=== PATIENT | female | born 1975 | race Caucasian/White ===

== ENCOUNTER 2017-03-14 13:09 | Emergency (ER) | payer OTHER ==
[2017-03-14] MEDS ORDERED: NORMAL SALINE 1000 ML 1,000 ML IV ONE (13:38)
--- NOTE | 2017-03-14 13:39 | ER Document Report ---
ED Seizure - General Mode of Arrival: Medic Information source: Patient, Relative <ALISON JAMISON - Last Filed: 03/14/17 13:48> <CARMINA SALAS - Last Filed: 03/14/17 16:28> - General Stated Complaint: POSSIBLE SEIZURE Time Seen by Provider: 03/14/17 13:15 Notes: Patient is a 41-year-old female that presents to the emergency department today after a seizure that occurred prior to arrival. at bedside gives most of the history. According to the , the patient has "not been feeling well" for the last few days. Today, they were in the kitchen cooking when she stated she did not feel well and was going to lie down. went to the bedroom, patient was sitting up, staring at the back of the thermometer with a blank stare and then went into seizure-like activity. describes this as the patient tensing up and shaking, lasting for approximately 1 minute. states he carried her into the living room and laid her down on the floor where she eventually stopped tensing up, however she continued to have a blank stare. states she then was very confused, combative, pushing him away when EMS arrived. Patient states she is mildly nauseated but denies any pain other than her usual arthritic pain. Patient denies a headache. Patient does not have a history of seizures. (ALISON JAMISON) The patient sees Dr. Elmore for primary care, Dr. Orr is her child and adolescent therapist and [place], Dr. Rodriguez is her ordnance technician with [facility], Dr. Kimberly Diehl [place] manages her hyperthyroidism. (CARMINA SALAS) - Related Data Allergies/Adverse Reactions: No Known Allergies Allergy (Unverified 10/17/14 11:02) Past Medical History - General Information source: Patient, Relative - Social History Smoking Status: Never Smoker Cigarette use (# per day): No Frequency of alcohol use: None Drug Abuse: None Lives with: Family Family History: Reviewed & Not Pertinent - Past Medical History Cardiac Medical History: Reports: Other - History of SVT, on metoprolol Pulmonary Medical History: Reports: Hx Pneumonia - 10 yrs ago Neurological Medical History: Reports: Hx Migraine Endocrine Medical History: Reports: Hx Hyperthyroidism Renal/ Medical History: Reports: Hx Ovarian Cysts - left x 2 Musculoskeltal Medical History: Reports Hx Arthritis - RA, Reports Hx Musculoskeletal Deformity, Reports Hx Musculoskeletal Trauma, Reports Other - 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 Psychiatric Medical History: Reports: Hx Anxiety, Hx Depression Past Surgical History: Reports: Hx Adenoidectomy, Hx Section - x 3, Hx Hysterectomy, Hx Oral Surgery - [place] teeth, Hx Orthopedic Surgery - right knee wash, Hx Tonsillectomy - Immunizations Hx Diphtheria, Pertussis, Tetanus Vaccination: Yes <ALISON JAMISON - Last Filed: 03/14/17 13:48> Review of Systems - Review of Systems Constitutional: See HPI, Fever - "low grade" no higher than 100 EENT: No symptoms reported Cardiovascular: No symptoms reported Respiratory: No symptoms reported Gastrointestinal: See HPI, Nausea Genitourinary: No symptoms reported Female Genitourinary: No symptoms reported Musculoskeletal: No symptoms reported Skin: No symptoms reported Hematologic/Lymphatic: No symptoms reported Neurological/Psychological: See HPI, Seizure. denies: Headaches -: Yes All other systems reviewed and negative <ALISON JAMISON - Last Filed: 03/14/17 13:48> Physical Exam <ALISON JAMISON - Last Filed: 03/14/17 13:48> <CARMINA SALAS - Last Filed: 03/14/17 16:28> - Vital signs Vitals: Pulse Resp 125 H 18 03/14/17 13:15 03/14/17 13:15 - Notes Notes: Physical Exam: General: Alert, appears uncomfortable. HEENT: Normocephalic. Atraumatic. PERRL. Extraocular movements intact. Oropharynx clear. No tongue biting. Neck: Supple. Non-tender. Respiratory: No respiratory distress. Clear and equal breath sounds bilaterally. Cardiovascular: Tachycardic, no murmurs, regular rhythm. Abdominal: Normal Inspection. Non-tender. No distension. Normal Bowel Sounds. Back: Non-tender. No deformity or step off. Extremities: Moves all four extremities. Upper extremities: Normal inspection. Normal ROM. Lower extremities: Normal inspection. No edema. Normal ROM. Neurological: Normal cognition. AAOx4. Normal speech. Psychological: Normal affect. Normal Mood. Skin: Warm. Dry. Normal color. (ALISON JAMISON) Course <ALISON JAMISON - Last Filed: 03/14/17 13:48> - Laboratory Result Diagrams: 03/14/17 14:29 03/14/17 14:29 - EKG Interpretation by Me EKG shows normal: Sinus rhythm, [place], Intervals, QRS Complexes. abnormal: ST-T Waves Rate: Tachycardia - 108 P Waves: LAE When compared to previous EKG there are: Changes noted - Nonspecific lateral T- wave changes <CARMINA SALAS - Last Filed: 03/14/17 16:28> - Re-evaluation Re-evalutation: 03/14/17 15:42 Patient is now sitting up feeling much better except that now she is having her typical migraine type headache. I explained to her and her that she needs neurological workup for seizure disorder as her 2 days of sleep deprivation may well have lowered his seizure threshold. The rest of her evaluation including laboratory and history does suggest a viral type illness probably causing her to feel poorly. Her free T4 was 1.14 which is completely normal, her free T3 was 8.23 which is slightly elevated but an unlikely cause to lower her seizure threshold. Her WBC is 11,600 which is slightly elevated, but is not unexpected in the face of a tonic-clonic seizure. Her blood pressure is now 129/86 with a heart rate in the low 90s. (CARMINA SALAS) - Vital Signs Vital signs: Temp Pulse Resp BP Pulse Ox 125 H 14 130/93 H 99 03/14/17 13:15 03/14/17 14:05 03/14/17 14:05 03/14/17 14:05 - Laboratory Laboratory results interpreted by me: 03/14/17 03/14/17 03/14/17 14:29 14:29 14:29 WBC 11.6 H Seg Neutrophils % 84.1 H Lymphocytes % 10.8 L Absolute Neutrophils 9.7 H Glucose 111 H Magnesium 2.5 H Albumin 5.4 H Free T3 pg/mL 8.23 H Urine Protein Urine Blood 03/14/17 14:48 WBC Seg Neutrophils % Lymphocytes % Absolute Neutrophils Glucose Magnesium Albumin Free T3 pg/mL Urine Protein 100 H Urine Blood SMALL H Discharge <ALISON JAMISON - Last Filed: 03/14/17 13:48> <CARMINA SALAS - Last Filed: 03/14/17 16:28> - Discharge Clinical Impression: Seizure, Post-seizure headache Condition: Stable Disposition: HOME, SELF-CARE Additional Instructions: Seizure: You have had a seizure. Seizure disorders (epilepsy) of one sort or another affect about one out of 50 people. The seizure occurs because of abnormal electrical activity in the brain. Seizures may be due to drugs and alcohol, strokes, brain injury, or infection. In the most common form of epilepsy, no cause can be found. You will require further evaluation to determine the cause of your seizure, and to determine whether anti-seizure medication is required. This follow-up testing is important, so please call us if you encounter problems with scheduling of tests or appointments. YOU SHOULD NOT DRIVE until released to do so by your physician. The law requires that seizures be reported to the road driver's license bureau--a seizure while driving could be catastrophic. Call the doctor if seizures recur, or if you develop new symptoms such as fever, severe headache, stiff neck, confusion or increasing sleepiness, weakness or numbness, or visual problems. Viral Syndrome: You most likely have a viral infection. Viruses not only cause "colds," but can cause many different symptoms including generalized aching, fever, headache, cough, diarrhea, nausea, vomiting, and fatigue. The treatment, for the most part, is simply relief of symptoms. This means that antibiotics are usually not given. Rest, fluids, pain medications and, occasionally, medication for the specific symptoms that are most bothersome will be prescribed. Use good handwashing to avoid passing the virus to others. Shared toys should be cleaned with disinfectant. Clean the toilets, sinks, and counter surfaces in bathrooms. Launder clothing in hot water. Contact the physician if you develop any new or unusual symptoms such as severe headache, stiff neck, high fever, chest pain, productive cough, or shortness of breath. You should be rechecked if you don't see marked improvement within seven to 10 days. //////////////////////////////////////////////////////////////////////////////// //////////////////////////////////////////////////////////////////////////////// ////////////////// Drink plenty of fluids. Get some sleep. Avoid caffeine or any energy type drinks. Follow-up with your primary care provider Saturday to discuss referral to neurology service to further evaluate this seizure. Take copies of the lab work with you when you go to see your primary care provider. RETURN TO THE EMERGENCY ROOM IF ANY NEW OR WORSENING SYMPTOMS. Scribe Attestation: 03/14/17 13:58 I personally performed the services described in the documentation, reviewed and edited the documentation which was dictated to the scribe in my presence, and it accurately records my words and actions. (CARMINA SALAS) Scribe Documentation - Scribe Written by Josephine:: Josephine Silvestre, 03/14/2017 1355 acting as scribe for :: Kristin <ALISON JAMISON - Last Filed: 03/14/17 13:48>
--- NOTE | 2017-03-14 14:04 | RADIOLOGY REPORT (SQ) ---
EXAM DESCRIPTION: CT HEAD WITHOUT COMPLETED DATE/TIME: 03/14/2017 1:54 pm REASON FOR STUDY: New-onset seizures, immunosuppressed COMPARISON: None. TECHNIQUE: Axial images acquired through the brain without intravenous contrast. Images reviewed wi th bone, brain and subdural windows. Images stored on PACS. All CT scanners at this facility use dose modulation, iterative reconstruction, and/or weight based d osing when appropriate to reduce radiation dose to as low as reasonably achievable (ALARA). [facility]: Dose Right [facility]: CareDose [facility]: Dose Right [facility]: Teradose 4D [facility]: Smart [employer] RADIATION DOSE: CT Rad equipment meets quality standard of care and radiation dose reduction techniq ues were employed. CTDIvol: 64.6 mGy. DLP: 1163 mGy-cm. mGy. LIMITATIONS: None. FINDINGS: VENTRICLES: Normal size and contour. CEREBRUM: No masses. No hemorrhage. No midline shift. No evidence for acute infarction. Normal gra y/white matter differentiation. No areas of low density in the white matter. CEREBELLUM: No masses. No hemorrhage. No alteration of density. No evidence for acute infarction. EXTRAAXIAL SPACES: No fluid collections. No masses. ORBITS AND GLOBE: No intra- or extraconal masses. Normal contour of globe without masses. CALVARIUM: No fracture. PARANASAL SINUSES: No fluid or mucosal thickening. SOFT TISSUES: No mass or hematoma. OTHER: No other significant finding. IMPRESSION: NORMAL BRAIN CT WITHOUT CONTRAST. EVIDENCE OF ACUTE STROKE: NO. COMMENT: Quality ID # [id number]: Final reports with documentation of one or more dose reduction techniques (e.g., Automated exposure control, adjustment of the mA and/or kV according to patient size, use of iterative reconstruction technique) TECHNICAL DOCUMENTATION: JOB ID: [id number] [employer]- All Rights Reserved
[2017-03-14 14:40] LABS: ABSOLUTE LYMPHOCYTES (AUTO) 1.3 10^3/uL (0.5-4.7); ABSOLUTE MONOCYTES (AUTO) 0.5 10^3/uL (0.1-1.4); ABSOLUTE NEUT (AUTO) 9.7 10^3/uL (1.7-8.2); BASOPHILS % (AUTO) 0.4 % (0-2); EOSINOPHILS % (AUTO) 0.1 % (0-6); HEMATOCRIT 44.1 % (36.0-47.0); HGB HCT DIFFERENCE 0.9; LYMPHOCYTES % (AUTO) 10.8 % (13-45); MEAN CORPUSCULAR HEMOGLOBIN 30.8 pg (27.0-33.4); MEAN CORPUSCULAR VOLUME 91 fl (80-97); MONOCYTES % (AUTO) 4.6 % (3-13); RED BLOOD COUNT 4.87 10^6/uL (3.72-5.28); RED CELL DISTRIBUTION WIDTH 13.2 % (11.5-14.0); SEGMENTED NEUTROPHILS % (AUTO) 84.1 % (42-78); WHITE BLOOD COUNT 11.6 10^3/uL (4.0-10.5)
[2017-03-14 15:00] LABS: ALANINE AMINOTRANSFERASE 28 U/L (9-52); ALBUMIN 5.4 g/dL (3.5-5.0); ALKALINE PHOSPHATASE 44 U/L (38-126); ANION GAP 17 (5-19); ASPARTATE AMINO TRANSFERASE 25 U/L (14-36); BILIRUBIN,DIRECT 0.4 mg/dL (0.0-0.4); BILIRUBIN,TOTAL 0.8 mg/dL (0.2-1.3); BLOOD UREA NITROGEN 10 mg/dL (7-20); CARBON DIOXIDE 22 mmol/L (22-30); CHLORIDE 103 mmol/L (98-107); CREATINE KINASE 35 U/L (30-135); CREATININE RESULT 0.68 mg/dL (0.52-1.25); GLUCOSE 111 mg/dL (75-110); MAGNESIUM 2.5 mg/dL (1.6-2.3); POTASSIUM 4.8 mmol/L (3.6-5.0); SODIUM 141.7 mmol/L (137-145); TOTAL PROTEIN 8.2 g/dL (6.3-8.2)
[2017-03-14 15:16] LABS: FREE T3 8.23 pg/mL (2.77-5.27)
[2017-03-14 15:18] LABS: APPEARANCE,URINE CLEAR; BILIRUBIN,URINE NEGATIVE (NEGATIVE); GLUCOSE, URINE NEGATIVE (NEGATIVE); KETONES,URINE NEGATIVE (NEGATIVE); LEUKOCYTE ESTERASE,URINE NEGATIVE (NEGATIVE); NITRITE,URINE NEGATIVE (NEGATIVE); PROTEIN,URINE 100 mg/dL (NEGATIVE); URINE SPECIFIC GRAVITY 1.019; UROBILINOGEN,URINE NEGATIVE mg/dL (<2.0)
[2017-03-14] MEDS ORDERED: PROCHLORPERAZINE EDISYLATE INJ 10 MG/2 ML VIAL IV ONE (15:40)
[2017-03-14] MEDS ORDERED: DIPHENHYDRAMINE HCL 50 MG/ML VIAL IV ONE (15:40)
--- NOTE | 2017-03-14 15:47 | EKG REPORT ---
SEVERITY:- ABNORMAL ECG - SINUS TACHYCARDIA NONSPECIFIC ST-T ABNORMALITIES, LATERAL LEADS : Confirmed by: Danielle Crawford MD 14-Mar-2017 15:46:29
[2017-03-14 16:45] VITALS: BP 130/91
== END 2017-03-14 16:45 | disposition home or self-care (01) ==
LOC: ER 13:09
DX: R56.9 Unspecified convulsions (principal); R51 Headache; R11.0 Nausea; Z90.710 Acquired absence of both cervix and uterus
CPT/HCPCS: 93005; 99285; 96361; 96374; 96375; 36415; 87040; 84439; 82550; 83735; 85025; 80053; 81001; 84484; 84481; 70450; 93010; J1200; J0780; J7030

== ENCOUNTER 2017-03-14 23:40 | Emergency (ER) | payer OTHER ==
[2017-03-15] MEDS ORDERED: DIAZEPAM 5 MG TABLET PO ONE (02:11)
--- NOTE | 2017-03-15 03:23 | ER Document Report ---
ED General - General Chief Complaint: Anxiety Stated Complaint: POSSIBLE ANXIETY Time Seen by Provider: 03/15/17 02:10 Notes: Patient is a 41-year-old female who presents with concerns of having a panic attack. Patient was seen in the emergency department earlier today after having a new onset seizure. She states that she went home, was continued to feel extremely anxious, was unable to calm down. Has been notes that she became extremely tremulous and appeared to have symptoms consistent with a panic attack including hyperventilation, shaking, and crying. She has no history of overt panic attacks in the past but does have a history of chronic anxiety and depression. Apparently her primary doctor is prescribing Xanax 1 mg 3 times daily. She also takes Zoloft for chronic depression and anxiety. She denies any acute suicidal or homicidal ideation. She has not had any additional seizures since discharge. TRAVEL OUTSIDE OF THE [place] IN LAST 30 DAYS: No - Related Data Allergies/Adverse Reactions: No Known Allergies Allergy (Verified 03/14/17 23:57) Past Medical History - General Information source: Patient, Relative - Social History Smoking Status: Never Smoker Chew tobacco use (# tins/day): No Frequency of alcohol use: None Drug Abuse: None Lives with: Spouse/Significant other Family History: Reviewed & Not Pertinent Patient has suicidal ideation: No Patient has homicidal ideation: No - Past Medical History Cardiac Medical History: Denies: Hx Atrial Fibrillation, Hx Congestive Heart Failure, Hx Coronary Artery Disease, Hx Heart Attack, Hx Hypercholesterolemia, Hx Hypertension, Hx Peripheral Vascular Disease, Hx Pulmonary Embolism, Hx Heart Murmur Pulmonary Medical History: Reports: Hx Pneumonia - 10 yrs ago Denies: Hx Asthma, Hx Bronchitis, Hx COPD, Hx Respiratory Failure, Hx Sleep Apnea, Hx Tuberculosis Neurological Medical History: Reports: Hx Migraine Endocrine Medical History: Reports: Hx Hyperthyroidism Renal/ Medical History: Reports: Hx Ovarian Cysts - left x 2. Denies: Hx Peritoneal Dialysis, Hx Pelvic Inflammatory Disease Malignancy Medical History: Denies: Hx Breast Cancer, Hx Cervical Cancer, Hx Leukemia, Hx Lung Cancer, Hx Ovarian Cancer Musculoskeltal Medical History: Reports Hx Arthritis - RA, Denies Hx Fibromyalgia, Denies Hx Muscular Dystrophy, Reports Hx Musculoskeletal Deformity , Reports Hx Musculoskeletal Trauma Psychiatric Medical History: Reports: Hx Anxiety, Hx Depression Traumatic Medical History: Denies: Hx Fractures Infectious Medical History: Denies: Hx HIV Past Surgical History: Reports: Hx Adenoidectomy, Hx Section - x 3, Hx Hysterectomy, Hx Oral Surgery - [place] teeth, Hx Orthopedic Surgery - right knee wash, Hx Tonsillectomy. Denies: Hx Appendectomy, Hx Bowel Surgery, Hx Cholecystectomy, Hx Coronary Artery Bypass Graft, Hx Gastric Bypass Surgery, Hx Herniorrhaphy, Hx Mastectomy, Hx Pacemaker, Hx Tubal Ligation - Immunizations Hx Diphtheria, Pertussis, Tetanus Vaccination: Yes Review of Systems - Review of Systems Notes: Constitutional: Negative for fever. HENT: Negative for sore throat. Eyes: Negative for visual changes. Cardiovascular: Negative for chest pain. Respiratory: Negative for shortness of breath. Gastrointestinal: Negative for abdominal pain, vomiting or diarrhea. Genitourinary: Negative for dysuria. Musculoskeletal: Negative for back pain. Skin: Negative for rash. Neurological: Negative for headaches, weakness or numbness. 10 point ROS negative except as marked above and in HPI. Physical Exam - Vital signs Vitals: Temp Pulse Resp BP Pulse Ox 97.7 F 122 H 24 H 152/86 H 98 03/14/17 23:57 03/14/17 23:57 03/14/17 23:57 03/14/17 23:57 03/14/17 23:57 Interpretation: Tachycardic Notes: PHYSICAL EXAMINATION: GENERAL: Well-appearing, well-nourished and in no acute distress. HEAD: Atraumatic, normocephalic. EYES: Pupils equal round and reactive to light, extraocular movements intact, sclera anicteric, conjunctiva are normal. ENT: nares patent, oropharynx clear without exudates. Moist mucous membranes. NECK: Normal range of motion, supple without lymphadenopathy LUNGS: Breath sounds clear to auscultation bilaterally and equal. No wheezes rales or rhonchi. HEART: Regular tachycardia without murmurs ABDOMEN: Soft, nontender, normoactive bowel sounds. No guarding, no rebound. No masses appreciated. EXTREMITIES: Normal range of motion, no pitting or edema. No cyanosis. NEUROLOGICAL: No focal neurological deficits. Moves all extremities spontaneously and on command. PSYCH: Normal mood, normal affect. SKIN: Warm, Dry, normal turgor, no rashes or lesions noted. Course - Re-evaluation Re-evalutation: 03/15/17 03:20 Patient presents with history most consistent with an acute panic attack. There was a clear trigger for tonight's episode. Symptoms did resolve after receiving medical therapy here in the emergency department. Vitals otherwise within normal limits with the exception of mild tachycardia. I do not suspect an acute pulmonary embolus, ACS, pneumothorax, or any other acute left threatening pathology based on history and exam. I do not believe any labs or imaging are indicated at this time. At this time will discharge with return precautions and follow-up recommendations. Verbal discharge instructions given a the bedside and opportunity for questions given. Medication warnings reviewed. Patient is in agreement with this plan and has verbalized understanding of return precautions and the need for primary care follow-up in the next 24-72 hours. - Vital Signs Vital signs: Temp Pulse Resp BP Pulse Ox 98.6 F 116 H 20 125/74 99 03/15/17 04:26 03/15/17 04:26 03/15/17 04:26 03/15/17 04:26 03/15/17 04:26 Discharge - Discharge Clinical Impression: Panic attack Condition: Good Disposition: HOME, SELF-CARE Instructions: Anxiety ([facility]) Additional Instructions: You were seen today for a panic attack. Please return if you develop recurrence of your symptoms, thoughts of wanting to harm yourself, or any other symptoms that are concerning to you. Follow-up with your primary doctor or mental health provider regarding today's ED visit. As we discussed, discussed with your primary about coming off of Xanax and transitioning to alternative medications. I would also encourage you to request a psychiatric consult for assistance in managing her mental health conditions. Referrals: IZZY MICHELLE MD [Primary Care Provider] - Follow up as needed
[2017-03-15 04:27] VITALS: BP 125/74
== END 2017-03-15 04:27 | disposition home or self-care (01) ==
LOC: ER 23:40
DX: F41.0 Panic disorder [episodic paroxysmal anxiety] (principal); F41.9 Anxiety disorder, unspecified; F32.9 Major depressive disorder, single episode, unspecified; Z79.899 Other long term (current) drug therapy
CPT/HCPCS: 99283